=== PATIENT | male | born 1975 | race Caucasian/White ===

== ENCOUNTER 2017-07-21 19:14 | Emergency (ER) | payer MEDICAID ==
[~2017-07-21] VITALS: Ht 152.4 cm; Wt 74.8 kg
[2017-07-21 19:27] VITALS: BP_SYST 141
--- NOTE | 2017-07-21 19:45 | NUR ---
PT TO AMBULATORY TO BED 4 FOR EVALUATION
--- NOTE | 2017-07-21 19:46 | NUR ---
LILA Damon examining patient.
--- NOTE | 2017-07-21 19:50 | NUR ---
Patient brought with girlfriend. Patient complaining of bug bite to right arm worsening for 1 week. Redness swelling and drainage noted. Pain 5/10, throbbing. No other complaints/injuries per patient or as noted. Will continue to monitor.
[2017-07-21] MEDS: CEPHALEXIN 500 MG CAPSULE PO ONE (20:07)
[2017-07-21] MEDS: SULFAMETHOXAZOLE/TRIMETHOPR DS 1 TABLET PO ONE (20:08)
[2017-07-21] MEDS: HYDROcodone/ACETAMIN 5-325 MG TAB (NORCO/ VICODIN) PO ONE (20:16)
[2017-07-21] MEDS: LIDOCAINE/EPI 2% 1:100000 20 ML VIAL INJ ONE (20:29)
--- NOTE | 2017-07-21 20:29 | NUR ---
I&D Procedure done by NAVIN sylvester using sterile technique. Lidocaine 1% used. . Adaptic, 4x4 and nancy to wound. small amt of bleeding noted. Wound care discussed w/ patient. Pt tolerated procedure well.
[2017-07-21 20:52] VITALS: BP_SYST 133
--- NOTE | 2017-07-21 20:52 | NUR ---
Patient given written and verbal discharge instructions and verbalizes understanding. ER MD discussed with patient the results and treatment provided. Patient in stable condition. ID arm band removed. Rx of Keflex, Bactrim and motrin given. Patient educated on pain management and to follow up with PMD. Pain Scale 2/10. Opportunity for questions provided and answered.
== END 2017-07-21 20:52 | disposition home or self-care (01) ==
LOC: SED 19:14
DX: L02.413 Cutaneous abscess of right upper limb (principal); R03.0 Elevated blood-pressure reading, without diagnosis of hypertension
CPT/HCPCS: 99283